=== PATIENT | female | born 2000 | race Caucasian/White ===

== ENCOUNTER 2024-09-13 15:05 | Outpatient (AMB) | payer OTHER, SELFPAY ==
--- NOTE | 2024-09-13 15:35 | A.OFFPC_ITS ---
Vital Signs 09/13/24 15:40 09/13/24 16:13 09/13/24 16:14 09/13/24 16:14 Height 5 ft 6 in Weight 140 lb BMI 22.6 BP 138/98 H 140/94 H 140/94 H 130/90 H Blood Pressure Location Lt brachial Lt brachial Lt brachial Lt brachial Position Sitting Supine Sitting Standing Respiration 12 Pulse 97 70 77 Pulse Source Pulse Oximeter Pulse Oximeter Temp 99 F Temp Source Oral Pulse Oximetry (%) 98 Oxygen Delivery Method Room Air Intake Visit Reasons: dizzy Intake Note: Dizziness Breast Puller Required: No Allergies No Known Allergies Allergy (Verified 09/13/24 15:35) Medication List - Last Reconciled 09/13/24 by Cristal Theodore PA-C drospirenone-ethinyl estradiol 3-0.02 mg 1 tab PO DAILY escitalopram oxalate (Lexapro) 10 mg PO DAILY Tobacco use date assessed: 09/13/24 Dental Screening Dental Screen Date: 09/13/24 Did you have a dental visit in the last 12 months?: No Did you have a dental problem in the last 6 months where you did not have access to dental care?: No Was dental information given to patient?: Patient declined HPI dizzy HPI Details Pt is a 24 y/o female who presents today to discuss acute sx of anxiety. Patient states that yesterday she was walking in the mall when all was said and she developed what felt like a panic attack. She says that she felt very lightheaded and like her heart was racing and she was shaking. She states that this is exactly how her typical panic attacks feel but she has not time. She was doing overall well in regards to her anxiety but this flared up on her almost out of nowhere. She says that there was not a triggers that she is aware of. She went home and she talked it through with her mom and dad and still was having increased anxiety. She tells me that prior to this for a few days she decide to do 20 mg of Lexapro. She previously was very inconsistent with this at the 10 mg dosage. She says that she would take 1 or 2 pills a week and then sort of forget about it. Sometimes she was more consistent than other times. Other than that nothing has significantly changed. No SI/HI. She states that she just has this worsened feeling of anxiety. Her mother has panic attacks and did give her a lorazepam last night which she states was helpful. She tells me that she was gurgling all of her symptoms because she was panicked and states that that made everything worse. She is currently feeling some anxiety here but does not feel like she did yesterday. She is not having any chest pain, shortness on breath, headaches, vision changes, nausea, vomiting or diarrhea. When she was experiencing the panic attack she says that she did vomit a couple times but it was self-induced. She states it felt like her body just needed to get rid of whatever was in it. She says that she actually made herself vomit from the stress and anxiety not because she felt sick. [facility] Surgical History H/O left knee surgery Family History Other Substance abuse Social History (Updated 09/13/24 @ 15:52 by Mrau Vanegas CMA) Housing: House Alcohol intake: current Patient Tobacco Use Status: Never used Tobacco e-Cigarette/Vaping Use: Never Used Second Hand Smoke Exposure: No Substance Use Type: Marijuana service: No Current occupational status: employed Current occupation: bartending Current occupational exposures/hazards: No Cognitive needs: No Hearing needs: No Vision needs: No Questionnaire PHQ-9 Over the last 2 weeks, how often have you been bothered by any of the following problems? 1. Little interest or pleasure in doing things: several days 2. Feeling down, depressed, or hopeless: several days 3. Trouble falling or staying asleep, or sleeping too much: not at all 4. Feeling tired or having little energy: several days 5. Poor appetite or overeating: not at all 6. Feeling bad about yourself - or that you are a failure or have let yourself or your family down: not at all 7. Trouble concentrating on things, such as reading the newspaper or watching television: not at all 8. Moving or speaking so slowly that other people could have noticed. Or the opposite - being so fidgety or restless that you have been moving around a lot more than usual: not at all 9. Thoughts that you would be better off or of hurting yourself in some way: not at all Total score: 3 Depression Screening Interpretation: Negative Depression Screening Done: Yes 79298 - PHQ-9 Billing: Yes Source: Developed by Drs. Aaron Chan, Nafisa Licea, Kevon Kirk and colleagues, with an educational lucille from [employer]. Thrive Questionnaire Date Thrive assessed: 09/13/24 I am a: Patient What is your living situation today?: I have a steady place to live Within the past 12 months, did the food you bought not last and you didn't have the money to get more?: Never true Within the past 12 months, did you worry whether your food would run out before you got money to buy more?: Never true Do you have trouble paying for medicines?: No Do you have trouble getting transportation to medical appointments?: No Do you have trouble paying your heating and electricity bill?: No Do you have trouble taking care of your child, family member or friend?: No Do you have trouble with day-to-day activities such as bathing, preparing meals, shopping, managing finances, etc.?: No Are you currently unemployed and looking for a job?: No Are you interested in more education?: Yes Please select the resources that you would like help with: None Currently or been in a relationship where the following occur: No concerns reported THRIVE Score: 0 AUDIT C Alcohol Use Questionnaire (AUDIT-C) 1. How often do you have a drink containing alcohol?: 2-4 times a month 2. How many drinks containing alcohol do you have on a typical day when you are drinking?: 5 or 6 3. How often do you have six or more drinks on one occasion?: Less than monthly Total Score: 5 SHASTA-7 AMB Questionnaire SHASTA-7 Date SHASTA - 7 assessed: 09/13/24 Feeling nervous, anxious, or on edge: 3 = Nearly every day Not being able to stop or control worryin = Nearly every day Worrying too much about different things: 3 = Nearly every day Trouble relaxin = Nearly every day Being so restless that it is hard to sit still: 3 = Nearly every day Becoming easily annoyed or irritable: 3 = Nearly every day Feeling afraid as if something awful might happen: 3 = Nearly every day Total SHASTA-7 score (0-4 normal; 5-9 mild; 10-14 moderate; 15-21 severe): 21 Source: Developed by Drs. Aaron Chan, Nafisa Licea, Kevon Kirk and colleagues, with an educational lucille from [employer]. SHASTA-7 Assessment Billing SHASTA-7 Assessment Tool: SHASTA-7 Assessment 33501 Physical exam (Primary Care) Vital Signs: Last Vital Signs Temp 99 F 09/13/24 15:40 Pulse 77 09/13/24 16:14 Resp 12 09/13/24 15:40 BP 130/90 H 09/13/24 16:14 Pulse Ox 98 09/13/24 15:40 Oxygen Delivery Method Room Air 09/13/24 15:40 BMI result Body Mass Index 22.6 Tobacco/Smoking Status: Tobacco use Status Tobacco use date assessed 09/13/24 09/13/24 15:38 Patient Tobacco Use Status Never used Tobacco 09/13/24 15:52 e-Cigarette/Vaping Use Never Used 09/13/24 15:52 PHQ-9: PHQ-9 Score PHQ-9: Total score 3 09/13/24 15:54 Depression Screening Interpretation: Negative Thrive Assessment: Date of Thrive Assessment Date Thrive assessed 09/13/24 09/13/24 15:52 Currently or been in a relationship where the following occur: No concerns reported Const Orientation/consciousness: patient oriented x3 HENMT Ears: hearing grossly normal bilaterally Neck Thyroid: Thyroid normal Lymphatic: no lymphadenopathy noted Resp Auscultation: clear to auscultation bilaterally Cardio Rate: regular rate Rhythm: regular rhythm Heart sounds: S1 normal heart sound present and S2 normal heart sound present GI Inspection: Yes normal to inspection Palpation (GI): Soft to palpation and Other GI palpation findings present (nonte nder, no cva tenderness) Auscultation: normoactive bowel sounds Rectal Exam - Female: deferred Skin General skin exam: no rashes or lesions noted Neuro General: patient oriented x3, gait normal and no focal motor deficits Office Procedures EKG Details: EKG today in office is normal sinus rhythm. EKG interpreted by myself and Dr. Lopez. [id number], Complete Coding Level of Care Code Est Pt Level 4 (96885) Complex EM visit Add On G2211 Diagnoses Generalized anxiety disorder with panic attacks F41.1; F41.0 Elevated BP without diagnosis of hypertension R03.0 Lightheaded R42 CPT Codes EKG - CPT: 74244-[id number], Complete ([id number]) Additional Codes SHASTA-7 Assessment Billing - SHASTA-7 Assessment Tool: SHASTA-7 Assessment 68264 ([id number]) PHQ-9 - 51804 - PHQ-9 Billing: Yes ([id number]) Assessment & Plan Assessment & Plan (1) Generalized anxiety disorder with panic attacks: Code(s): F41.1 - Generalized anxiety disorder; F41.0 - Panic disorder [episodic paroxysmal anxiety] Category: Medical Plan: Discussed with patient that this could also be a side effect of the high dose of Lexapro without a taper. Labs ordered today. EKG reviewed. Orthostatic WNL. Patient does appear grossly neurologically intact today. We will do a short term follow up. I will see her back next week or sooner if anything worsens or changes. Advised her to reduce the dose of the Lexapro to 10 mg A prescription for lorazepam to use as needed for panic attacks was provided. She rarely ever takes this medication in his aware of its addictive potential. She will not operate machinery while taking this medication. (2) Elevated BP without diagnosis of hypertension: Code(s): R03.0 - Elevated blood-pressure reading, without diagnosis of hypertension Category: Medical Plan: We will bring her back to rechecked next week. Mother is a nurse and we will monitor blood pressures at home. (3) Lightheaded: Code(s): R42 - Dizziness and giddiness Category: Medical Plan: As above Orders: Orders Basic Metabolic Panel 09/13/24 F41.0 - Panic disorder [episodic paroxysmal anxiety], F41.1 - Generalized anxiety disorder, R03.0 - Elevated blood-pressure reading, without diagnosis of hypertension, R42 - Dizziness and giddiness TSH reflex Free T4 09/13/24 F41.0 - Panic disorder [episodic paroxysmal anxiety], F41.1 - Generalized anxiety disorder, R03.0 - Elevated blood-pressure reading, without diagnosis of hypertension, R42 - Dizziness and giddiness Complete Blood Count Auto Diff 09/13/24 F41.0 - Panic disorder [episodic paroxysmal anxiety], F41.1 - Generalized anxiety disorder, R03.0 - Elevated blood-pressure reading, without diagnosis of hypertension, R42 - Dizziness and giddiness Liver Panel 09/13/24 F41.0 - Panic disorder [episodic paroxysmal anxiety], F41.1 - Generalized anxiety disorder, R03.0 - Elevated blood-pressure reading, without diagnosis of hypertension, R42 - Dizziness and giddiness IRON PROFILE 09/13/24 F41.0 - Panic disorder [episodic paroxysmal anxiety], F41.1 - Generalized anxiety disorder, R03.0 - Elevated blood-pressure reading, without diagnosis of hypertension, R42 - Dizziness and giddiness Vitamin B12 and Folate 09/13/24 F41.0 - Panic disorder [episodic paroxysmal anxiety], F41.1 - Generalized anxiety disorder, R03.0 - Elevated blood-pressure reading, without diagnosis of hypertension, R42 - Dizziness and giddiness Magnesium 09/13/24 F41.0 - Panic disorder [episodic paroxysmal anxiety], F41.1 - Generalized anxiety disorder, R03.0 - Elevated blood-pressure reading, without diagnosis of hypertension, R42 - Dizziness and giddiness Ferritin 09/13/24 F41.0 - Panic disorder [episodic paroxysmal anxiety], F41.1 - Generalized anxiety disorder, R03.0 - Elevated blood-pressure reading, without diagnosis of hypertension, R42 - Dizziness and giddiness Medications: New escitalopram oxalate (Lexapro) 10 mg PO DAILY 90 tabs 0RF lorazepam 0.5 mg PO BID PRN 30 tabs 0RF anxiety 28 days
[2024-09-13 15:40] VITALS: BP 138/98; PULSE 97; RESP 12; TEMP 37.2; O2SAT 98; BMI 22.6
[2024-09-13 16:13] VITALS: BP 140/94; PULSE 70
[2024-09-13 16:14] VITALS: BP 130/90; BP 140/94; PULSE 77
--- OUTSIDE RECORDS SUMMARY | 2024-09-13 17:50 | XMS_ITS | Clinical Summary ---
Author Organization [facility] Address [address] [place] [address] Care Team Providers Care Rfid Engineer Name Role Phone Cristal Theodore Primary Care Provider [phone] Allergies No known active allergies Encounters Date Type Department Care Team Description 07/10/2024 4:05 PM EST Ancillary Procedure Orthopedic [address] [phone] Ronny Whatley MD 07/10/2024 3:30 PM EST Office Visit Orthopedic [address] [phone] Ronny Whatley MD Radial tunnel syndrome of left upper extremity (Primary Dx); Displaced fracture of base of third metacarpal bone, left hand, subsequent encounter for fracture with routine healing; Displaced fracture of base of fourth metacarpal bone, left hand, subsequent encounter for fracture with routine healing from Last 3 Months Social History Tobacco Use Types Packs/Day Years Used Date Smoking Tobacco: Never Assessed Comments Unknown Sex and Gender Information Value Date Recorded Sex Assigned at Not on file Legal Sex Female 8:51 AM EDT Gender Identity Not on file Sexual Orientation Not on file Plan of Treatment Health Maintenance Due Date Last Done Comments Hepatitis C Virus Screening 2002 HIV Screening 2015 HPV Vaccines (1 - 3-dose series) 2017 DTaP/Tdap/Td Vaccines (1 - Tdap) 2021 Hepatitis B Vaccines (1 of 3 - 19+ 3-dose series) 2021 Pap Smear (Ages 21-65) 2023 Influenza Vaccine 12/22/2023 03/15/2018, , 02/07/2014, Additional history exists COVID-19 Vaccine (2023- season) 2024 11/06/2020, 10/16/2020 Pneumococcal Vaccine: Pediatric (0-5 Years) and At-Risk Patients (6 to 49 Years) Aged Out No longer eligible based on patient's age to complete this topic Procedures Procedure Name Priority Date/Time Associated Diagnosis Comments XR HAND 3+ VIEWS-LEFT Routine 07/10/2024 4:09 PM EST Displaced fracture of base of third metacarpal bone, left hand, subsequent encounter for fracture with routine healing Displaced fracture of base of fourth metacarpal bone, left hand, subsequent encounter for fracture with routine healing from Last 3 Months Results * XR Hand 3+ views-Left (07/10/2024 4:09 PM EST) Narrative OAH - 07/10/2024 4:09 PM EST This exam was performed in office at [facility] and images reviewed by orthopedic provider. ??Any findings are documented within ambulatory encounter note on date of service. us Ronny Whatley MD IMG DIAGNOSTIC IMAGING ORDERAB LES Final Result OA from Last 3 Months Insurance [employer] Care Teams Rfid Engineer Relationship Specialty Start Date End Date Cristal Theodore PA [address] [place] [address] PCP - General Adult Health - PA/APNP/LANGUAGE SPECIALIST/GRAPPLE CREW LEADER 04/10/24
--- OUTSIDE RECORDS SUMMARY | 2024-09-13 17:50 | XMS_ITS | Clinical Summary ---
Author Organization [facility] Address [address] [place] [address] Care Team Providers Care Sales Service Supervisor Name Role Phone Unavailable Primary Care Provider Unavailabl e Allergies No known active allergies Medications Medication Sig Dispensed Refills Start Date End Date Status naproxen (NAPROSYN) 500 MG tablet TAKE 1 T PO BID WITH FOOD 6 06/14/2017 Active TRINESSA, 28, 0.18/0.215/0.25 MG-35 MCG TABS TK 1 T PO QD 5 08/21/2017 Active Social History Tobacco Use Types Packs/Day Years Used Date Smoking Tobacco: Never Smokeless Tobacco: Never Sex and Gender Information Value Date Recorded Sex Assigned at Not on file Gender Identity Not on file Sexual Orientation Not on file Plan of Treatment Health Maintenance Due Date Last Done Comments Hepatitis B Vaccines (1 of 3 - 3-dose series) 2002 Hepatitis C Screening 2002 COVID-19 Vaccine (#1) 2002 Depression Screening 2014 Gonorrhea and Chlamydia Screening 2015 Preventative Health Evaluation 01/04/2020 DTap / Tdap / Td (1 - Tdap) 2021 Cervical Cancer Screening (P ap Smear) 2023 Influenza Vaccine (#1) 2024 Pneumococcal Vaccine Aged Out No long er eligible based on patient's age to complete this topic RSV Ped < 20 months Aged Out No longe r eligible based on patient's age to complete this topic
--- OUTSIDE RECORDS SUMMARY | 2024-09-13 17:50 | XMS_ITS ---
Author Name [facility] Organization Unknown History of Medication Use Medication Directions Dispensed Refills Start Date End Date Stat us None recorded. (No additional sig information) completed valacyclovir 500 mg tablet TAKE 1 TABLET BY MOUTH EVERY DAY TAKE 1 TABLET BY MOUTH EVERY DAY completed Problems Problem Status Onset Date Problem Type Date of Resolution Source Displaced fracture of base of third metacarpal bone, left hand, subsequent encounter for fracture with routine healing active EncounterDiagnosisAct [facility] Radial tunnel syndrome of left upper extremity active EncounterDiagnosisAct [facility] Displaced fracture of base of fourth metacarpal bone, left hand, subsequent encounter for fracture with routine healing active EncounterDiagnosisAct [facility] Temporomandibular joint disorder active ProblemAct [facility] Acne active 2016-07-14 ProblemAct [facility] Herpes simplex active ProblemAct [facility] Dizziness active 2017-01-25 ProblemAct [facility] Septate hymen active ProblemAct [facility] [employer] [facility] Dysmenorrhea active 2016-07-14 ProblemAct [facility] [facility] Asthma active ProblemAct [facility] Knee pain active ProblemAct [facility] Migraine active 2007-06-29 ProblemAct [facility] Kidney stone active 2018-12-21 ProblemAct [facility] [employer] Allergic rhinitis active ProblemAct [facility] Anxiety active 2020-07-03 ProblemAct [facility] Keara Schlatter disease active ProblemAct [facility] Encounters Encounter Type Encounter Reason Primary Diagnosis Location Date Ambulatory [facility] 07/10/2024 Ambulatory Lesion of radial nerve, left upper limb Lesion of radial nerve, left upper limb [facility] 07/10/2024 Ambulatory [facility] 04/10/2024 Ambulatory Displaced fracture of base of third metacarpal bone, left hand, subsequent encounter for fracture with routine healing Displaced fracture of base of third metacarpal bone, left hand, subsequent encounter for fracture with routine healing [facility] 04/10/2024 Ambulatory Displaced fracture of base of third metacarpal bone, left hand, subsequent encounter for fracture with routine healing Displaced fracture of base of third metacarpal bone, left hand, subsequent encounter for fracture with routine healing [facility] 03/27/2024 Ambulatory [facility] 03/06/2024 Ambulatory Sprain of unspecified part of left wrist and hand, subsequent encounter Sprain of unspecified part of left wrist and hand, subsequent encounter [facility] 03/06/2024 Ambulatory [facility] 02/21/2024 Ambulatory [facility] 02/21/2024 Ambulatory [facility] 11/18/2022 Ambulatory [facility] 07/14/2022 Ambulatory [facility] 06/08/2022 Ambulatory [facility] 12/23/2021 Ambulatory [facility] 05/18/2021 Care Team Organization Name Specialty Phone Email Start Date End Da te [facility] ANDRE BRIONES Primary Care 04/10/2024 [facility] PCP Line Up Worker 02/22/2024 08/18/2024 [facility] NO PCP Primary Care 02/21/2024 [facility] 02/21/2024 [facility] 2021 [facility] 202012/23/2021
== END 2024-09-13 16:13 | disposition home or self-care (01) ==
PROVIDERS: PCP Physician Assistant; Visit Provider Physician Assistant
DX: F41.1 Generalized anxiety disorder (principal); F41.0 Panic disorder [episodic paroxysmal anxiety]; R03.0 Elevated blood-pressure reading, without diagnosis of hypertension; R42 Dizziness and giddiness

== ENCOUNTER → 2024-09-13 15:05 | Outpatient (BNVA) | payer SELFPAY | PROVIDERS: PCP Physician Assistant; Visit Provider Physician Assistant | DX: R42 Dizziness and giddiness (principal); F41.1 Generalized anxiety disorder; F41.0 Panic disorder [episodic paroxysmal anxiety]; R03.0 Elevated blood-pressure reading, without diagnosis of hypertension | CPT/HCPCS: 93005; 96127 ==